=== PATIENT | male | born 1940 | race African-American/Black ===

== ENCOUNTER → 2023-07-06 13:58 | Outpatient (REF) | payer MEDICARE, SELFPAY | LOC: WOUND 13:58 | PROVIDERS: ATTENDING PHYSICIAN Surgery; FAMILY PHYSICIAN Specialist | DX: L89.623 Pressure ulcer of left heel, stage 3 (principal); G62.9 Polyneuropathy, unspecified; I73.9 Peripheral vascular disease, unspecified; I87.2 Venous insufficiency (chronic) (peripheral); N18.9 Chronic kidney disease, unspecified; R33.8 Other retention of urine; N31.9 Neuromuscular dysfunction of bladder, unspecified; R33.9 Retention of urine, unspecified; S14.109S Unspecified injury at unspecified level of cervical spinal cord, sequela; X58.XXXS Exposure to other specified factors, sequela | CPT/HCPCS: 11042; 99204 ==

== ENCOUNTER → 2023-07-06 14:05 | Outpatient (REF) | payer MEDICARE, SELFPAY | LOC: RAD 14:05 | PROVIDERS: ATTENDING PHYSICIAN Surgery; FAMILY PHYSICIAN Family Medicine | DX: L89.623 Pressure ulcer of left heel, stage 3 (principal) | CPT/HCPCS: 73630 ==

== ENCOUNTER → 2023-07-13 09:58 | Outpatient (REF) | payer MEDICARE, SELFPAY | LOC: WOUND 09:58 | PROVIDERS: ATTENDING PHYSICIAN Surgery | DX: L89.623 Pressure ulcer of left heel, stage 3 (principal); G62.9 Polyneuropathy, unspecified; I73.9 Peripheral vascular disease, unspecified; I87.2 Venous insufficiency (chronic) (peripheral); N18.9 Chronic kidney disease, unspecified; R33.8 Other retention of urine; N31.9 Neuromuscular dysfunction of bladder, unspecified; R33.9 Retention of urine, unspecified; S14.109S Unspecified injury at unspecified level of cervical spinal cord, sequela; X58.XXXS Exposure to other specified factors, sequela | CPT/HCPCS: 11043 ==

== ENCOUNTER → 2023-07-20 10:06 | Outpatient (REF) | payer MEDICARE, SELFPAY | LOC: WOUND 10:06 | PROVIDERS: ATTENDING PHYSICIAN Surgery; FAMILY PHYSICIAN Internal Medicine | DX: L89.623 Pressure ulcer of left heel, stage 3 (principal); G62.9 Polyneuropathy, unspecified; I73.9 Peripheral vascular disease, unspecified; I87.2 Venous insufficiency (chronic) (peripheral); N18.9 Chronic kidney disease, unspecified; R33.8 Other retention of urine; N31.9 Neuromuscular dysfunction of bladder, unspecified; R33.9 Retention of urine, unspecified; S14.109S Unspecified injury at unspecified level of cervical spinal cord, sequela; X58.XXXS Exposure to other specified factors, sequela | CPT/HCPCS: 11043 ==

== ENCOUNTER → 2023-07-27 09:18 | Outpatient (REF) | payer MEDICARE, SELFPAY | LOC: WOUND 09:18 | PROVIDERS: ATTENDING PHYSICIAN Surgery; FAMILY PHYSICIAN Internal Medicine | DX: L89.623 Pressure ulcer of left heel, stage 3 (principal); G62.9 Polyneuropathy, unspecified; I73.9 Peripheral vascular disease, unspecified; I87.2 Venous insufficiency (chronic) (peripheral); N18.9 Chronic kidney disease, unspecified; R33.8 Other retention of urine; N31.9 Neuromuscular dysfunction of bladder, unspecified; R33.9 Retention of urine, unspecified; S14.109S Unspecified injury at unspecified level of cervical spinal cord, sequela; X58.XXXS Exposure to other specified factors, sequela | CPT/HCPCS: 11043 ==

== ENCOUNTER → 2023-08-03 09:35 | Outpatient (REF) | payer MEDICARE, SELFPAY | LOC: WOUND 09:35 | PROVIDERS: ATTENDING PHYSICIAN Surgery; FAMILY PHYSICIAN Internal Medicine | DX: L89.623 Pressure ulcer of left heel, stage 3 (principal); L97.412 Non-pressure chronic ulcer of right heel and midfoot with fat layer exposed; G62.9 Polyneuropathy, unspecified; I73.9 Peripheral vascular disease, unspecified; I87.2 Venous insufficiency (chronic) (peripheral); N18.9 Chronic kidney disease, unspecified; R33.8 Other retention of urine; N31.9 Neuromuscular dysfunction of bladder, unspecified; R33.9 Retention of urine, unspecified; S14.109S Unspecified injury at unspecified level of cervical spinal cord, sequela; X58.XXXS Exposure to other specified factors, sequela | CPT/HCPCS: 11042; 97597 ==

== ENCOUNTER → 2023-08-03 10:18 | Outpatient (REF) | payer MEDICARE, SELFPAY | LOC: RAD 10:18 | PROVIDERS: ATTENDING PHYSICIAN Surgery | DX: L97.412 Non-pressure chronic ulcer of right heel and midfoot with fat layer exposed (principal) | CPT/HCPCS: 73630 ==

== ENCOUNTER → 2023-08-10 09:48 | Outpatient (REF) | payer MEDICARE, SELFPAY | LOC: WOUND 09:48 | PROVIDERS: ATTENDING PHYSICIAN Surgery; FAMILY PHYSICIAN Internal Medicine | DX: L89.623 Pressure ulcer of left heel, stage 3 (principal); L97.412 Non-pressure chronic ulcer of right heel and midfoot with fat layer exposed; G62.9 Polyneuropathy, unspecified; I73.9 Peripheral vascular disease, unspecified; I87.2 Venous insufficiency (chronic) (peripheral); N18.9 Chronic kidney disease, unspecified; R33.8 Other retention of urine; N31.9 Neuromuscular dysfunction of bladder, unspecified | CPT/HCPCS: 99212 ==

== ENCOUNTER → 2023-08-17 09:22 | Outpatient (REF) | payer MEDICARE, SELFPAY | LOC: WOUND 09:22 | PROVIDERS: ATTENDING PHYSICIAN Surgery; FAMILY PHYSICIAN Internal Medicine | DX: L89.623 Pressure ulcer of left heel, stage 3 (principal); L89.613 Pressure ulcer of right heel, stage 3; G62.9 Polyneuropathy, unspecified; I73.9 Peripheral vascular disease, unspecified; I87.2 Venous insufficiency (chronic) (peripheral); N18.9 Chronic kidney disease, unspecified; R33.8 Other retention of urine; N31.9 Neuromuscular dysfunction of bladder, unspecified; R33.9 Retention of urine, unspecified; S14.109S Unspecified injury at unspecified level of cervical spinal cord, sequela; X58.XXXS Exposure to other specified factors, sequela | CPT/HCPCS: 11042 ==

== ENCOUNTER 2023-08-24 01:30 | Emergency (ER) | payer MEDICARE, SELFPAY ==
[2023-08-24 02:01] VITALS: BP 104/58
--- NOTE | 2023-08-24 02:13 | ED.GENMED ---
History of Present Illness
General
Chief Complaint: Male Genito-Urinary Symptoms
Source: patient and family
Exam Limitations: none
Time Seen by Provider: 08/24/23 02:13
Travel History
Have you had any contact with someone who has COVID-19?: No
Do you have any symptoms of coronavirus? Fever > 100 degrees, chills, cough, shortness of breath, sore throat, loss of taste or smell, muscle aches, or headache?: No
History of Present Illness
History of Present Illness:
See MDM
Past History
Past History
ED Past Medical History: Other (Urinary incontinence, spinal cord injury)
Social History
Tobacco: Non-smoker
Living: with family
Phy Exam
Physical Exam
Physical Exam:
See MDM
Course
Vital Signs
Initial and Last Documented VS:
Initial Vital Signs
Pulse Ox
99
08/24/23 01:32
Last Documented Vital Signs
Temp Pulse Resp Pulse Ox
98.9 F 88 16 98
08/24/23 01:34 08/24/23 01:34 08/24/23 01:34 08/24/23 01:34
MDM/Problems Addressed
Differential Diagnosis Includes:
HPI and MDM Narrative:
83-year-old male presenting with hematuria. Patient states that the visiting nurse tried to replace his indwelling Lin and blew the balloon up in his prostate. It began to bleed and they could not due to the copious amounts of blood.
When he arrived, a 14 Portuguese Lin was placed. Ricardo blood was immediately draining. However, it was quickly followed by straw-colored urine. Patient states he feels comfortable going home
Physical exam
General: Well appearing and non-toxic
HEENT: protecting airway
Neck: appears supple
CV: No evidence of cyanosis
Resp: No accessory muscle use
Abd: Non-distended. Soft and nontender
Extremities: Contractures to upper extremities
Neuro: alert
Psych: Normal affect
Skin: Intact
Problems Addressed including Acute and Chronic Conditions affecting care:
1. Lin catheter complication
Acuity: acute
Prognosis: stable
Details: Lin catheter was replaced and the hematuria is now replaced with straw-colored urine
Differential Diagnosis (but not limited to): Prostate injury, false passage, hematuria
Testing considered: Urinalysis
Drug therapy (if applicable): OTC meds, please see d/c instruction regarding Rx drugs
Amount and/or Complexity of Data Reviewed
Clinical info obtained from: Patient
External data reviewed: N/A
Labs I independently reviewed (but not limited to): N/A
Radiology: N/A
Pulse Ox: not hypoxic
EKG independently reviewed: N/A
Program Management Specialist: N/A
Critical Care: N/A
Risk of Complication:
Social Determinants of health: Good social support
Discussed with other providers: N/A
Escalation of Care includes Admit/Obs: After being observed in the Emergency Department, pt stable for discharge.
Occasional wrong word or 'sound a like' substitutions may have occurred due to the inherent limitations of voice recognition software. Read the chart carefully and recognize, using context, where substitutions have occurred.
*Critical Care Note
Total Time (30-74mins, 75-104mins- exclusive of procedures): Not Applicable
ED Attending Note
-
Portions of this chart may have been created with voice recognition software.� Occasional wrong word or��sound alike� substitutions may have occurred due to the inherent limitations of voice recognition software.
Discharge Plan
Departure
Patient Disposition: Home (Routine Discharge)
Date of Disposition: 08/24/23
Time of Disposition: 02:14
Patient with high blood pressure during this ER visit?: No
Discharge Problem:
Urinary catheter complication
Instructions: How to Care for Your Lin Catheter, Male
Prescriptions:
No Action
levothyroxine 25 mcg Tablet
25 mcg PO DAILY
amoxicillin-pot clavulanate 250-125 mg Tablet
1 tab PO Q12 Qty: 9 0RF
Rx Instructions:
last day 05/25/23
hydralazine 25 mg Tablet
50 mg PO TID Qty: 0 0RF
furosemide 40 mg Tablet
40 mg PO DAILY Qty: 0 0RF
polyethylene glycol 3350 [HealthyLax] 17 gram Powder In Packet
17 g PO DAILY Qty: 0 0RF
metoprolol tartrate 25 mg Tablet
25 mg PO BID Qty: 0 0RF
baclofen 5 mg Tablet
2.5 mg PO BID Qty: 0 0RF
sennosides-docusate sodium [Stool Softener-Stimulant Laxat] 8.6-50 mg Tablet
1 tab PO BID Qty: 0 0RF
Activity Restrictions/Additional Instructions:
Please return for any worsening symptoms.
You may return at any time if you have further concerns.
Please follow up with your doctor at the first available appointment, preferably this week.
Thank you for choosing [facility].
Interventions
Interventions:
*Risk Screen - Suicide Last Done: 08/24/23 01:34
*General Assessment Last Done: 08/24/23 01:34
*Neglect/Abuse Screening Last Done: 08/24/23 01:34
ED- Fall Risk Assessment Last Done: 08/24/23 01:34
*ED COVID-19 Vaccine History Last Done: 08/24/23 01:34
ED-Male Genitourinary Assessment Last Done: 08/24/23 01:34
Discharge Date and Time
Print Language: UZBEK
[2023-08-24 02:21] VITALS: BP 124/78
[2023-08-24 03:00] VITALS: BP 125/72
[2023-08-24 04:00] VITALS: BP 149/80
== END 2023-08-24 05:01 | disposition home or self-care (01) ==
LOC: EMR 01:30
PROVIDERS: EMERGENCY PHYSICIAN Student in an Organized Health Care Education/Training Program; FAMILY PHYSICIAN Physician Assistant Medical
DX: T83.098A Other mechanical complication of other urinary catheter, initial encounter (principal); R31.9 Hematuria, unspecified; Y84.6 Urinary catheterization as the cause of abnormal reaction of the patient, or of later complication, without mention of misadventure at the time of the procedure; R32 Unspecified urinary incontinence
CPT/HCPCS: 99284; 51702

== ENCOUNTER 2023-08-29 12:15 | Emergency (ER) | payer MEDICARE, SELFPAY ==
[2023-08-29 12:15] VITALS: BMI 19.8
[2023-08-29 12:19] VITALS: BP 108/65
[2023-08-29 13:35] LABS: Urine Albumin Trace (Neg - Trace); Urine Bilirubin Negative (Negative); Urine Character Slightly Cloudy (Clear); Urine Color Yellow; Urine Glucose Negative (Negative); Urine Ketone Negative (Negative); Urine Leukocyte 2+ (Negative); Urine Nitrite Negative (Negative); Urine Occult Blood 2+ (Negative); Urine Specific Gravity 1.005 (<1.030); Urine Urobilinogen Negative (Neg - 1+)
[2023-08-29 14:20] VITALS: BP 110/71
--- NOTE | 2023-08-29 14:22 | ED.GENMED ---
Addendum entered and electronically signed by Deborah Fermin PA-C 09/01/23 16:51:
Urine culture positive for Proteus, mostly pansensitive except Macrobid. Patient was called but did not answer. I left a message with his daughters phone who is the mother point of contact who did not call me back. I will presume that the patient
probably had colonization from his catheter based on reading the note where the patient had no systemic symptoms
Original Note:
History of Present Illness
General
Chief Complaint: Catheter/Tube Problem
Source: patient
Exam Limitations: none
Time Seen by Provider: 08/29/23 13:01
Nursing documentation reviewed up to this point in time: agreed with
Travel History
Have you had any contact with someone who has COVID-19?: No
Do you have any symptoms of coronavirus? Fever > 100 degrees, chills, cough, shortness of breath, sore throat, loss of taste or smell, muscle aches, or headache?: No
History of Present Illness
History of Present Illness:
83-year-old male past medical history of urinary retention hypothyroidism presenting to the emergency department after his Lin catheter was dislodged and Lin taken out by home visiting nurse yesterday able to urinate small amount but having
retention denies additional symptoms otherwise no fevers no additional concerns.
Past History
Past History
ED Past Medical History: Other (Urinary incontinence, spinal cord injury)
Social History
Tobacco: Non-smoker
Living: with family
Review of Systems
Review of Systems
Allergies reviewed?: Yes
All Other Systems: ROS reviewed and negative except as documented in HPI and ROS
Phy Exam
Physical Exam
Physical Exam:
GENERAL: Alert , in no apparent distress
EYE: pupils equal and reactive
NECK: Supple, no significant adenopathy.
ENT: o/p clr, mmm.
CARDIAC: Regular rate and rhythm .
LUNGS: Clear breath sounds bilaterally, no acute respiratory distress, no wheezes/rales/rhonchi
ABDOMEN: Soft, without focal tenderness, no r/g, no cvat
NEUROLOGICAL: Alert and oriented, no focal neuro deficits
SKIN: Warm and dry, skin intact.
MUSCULOSKELETAL: No edema, well perfused.
PSYCH: Normal and appropriate interaction.
Course
Orders/Labs/Results
Orders:
Orders
08/29/23 13:16
Lin Placement- Treatment ONCE
Reason for insertion: Acute Retention
08/29/23 13:23
Urinalysis Reflex To Culture Urgent
Date Specimen was Collected: 08/29/23
Time Specimen was Collected: 13:22
Urine Microscopic Reflex Cult Urgent
Urine Culture Urgent
SASCHA Source: U
Specimen Description:
Date Specimen was Collected: 08/29/23
Time Specimen was Collected: 13:22
Abnormal Lab Results
08/29/23
13:23
Ur Occult Blood Reflex 2+ A
(Negative)
Leukocyte Esterase Rfl 2+ A
(Negative)
Vital Signs
Initial and Last Documented VS:
Initial Vital Signs
Temp Pulse Resp BP Pulse Ox
97.4 F 75 20 108/65 97
08/29/23 12:19 08/29/23 12:19 08/29/23 12:19 08/29/23 12:19 08/29/23 12:19
Last Documented Vital Signs
Temp Pulse Resp BP Pulse Ox
97.4 F 72 16 110/71 99
08/29/23 12:19 08/29/23 14:20 08/29/23 14:20 08/29/23 14:20 08/29/23 14:20
MDM/Problems Addressed
MDM/Problems Addressed:
83-year-old male presenting to the emergency department today with concerns of Lin catheter issue denies additional symptoms otherwise does have some discomfort to the suprapubic region due to not urinating throughout the day today. Lin
catheter placed by nursing patient tolerated well stable for discharge urinalysis does not appear to be consistent with UTI. Return precautions given.
*Critical Care Note
Total Time (30-74mins, 75-104mins- exclusive of procedures): Not Applicable
ED Attending Note
-
Portions of this chart may have been created with voice recognition software.� Occasional wrong word or��sound alike� substitutions may have occurred due to the inherent limitations of voice recognition software.
Discharge Plan
Departure
Patient Disposition: Home (Routine Discharge)
Date of Disposition: 08/29/23
Time of Disposition: 14:24
Patient with high blood pressure during this ER visit?: No
Condition: Good
Covid-19: Not Applicable
Discharge Problem:
Dislodged Lin catheter
Instructions: How to Care for Your Lin Catheter, Male
Prescriptions:
No Action
levothyroxine 25 mcg Tablet
25 mcg PO DAILY
amoxicillin-pot clavulanate 250-125 mg Tablet
1 tab PO Q12 Qty: 9 0RF
Rx Instructions:
last day 05/25/23
hydralazine 25 mg Tablet
50 mg PO TID Qty: 0 0RF
furosemide 40 mg Tablet
40 mg PO DAILY Qty: 0 0RF
polyethylene glycol 3350 [HealthyLax] 17 gram Powder In Packet
17 g PO DAILY Qty: 0 0RF
metoprolol tartrate 25 mg Tablet
25 mg PO BID Qty: 0 0RF
baclofen 5 mg Tablet
2.5 mg PO BID Qty: 0 0RF
sennosides-docusate sodium [Stool Softener-Stimulant Laxat] 8.6-50 mg Tablet
1 tab PO BID Qty: 0 0RF
Referrals:
Ricardo Edwards Jr., MD [Active] - Follow up in 5-7 days
UNKNOWN - PT DOES,NOT KNOW [Family Provider] -
Activity Restrictions/Additional Instructions:
You came to the emergency department today with concerns of Lin catheter issue. You had a new 1 placed. Please have close with urology for further management. Return to the emergency department for any worsening, new or concerning symptoms.
Interventions
Interventions:
*Risk Screen - Suicide Last Done: 08/29/23 12:34
*General Assessment Last Done: 08/29/23 12:34
*Neglect/Abuse Screening Last Done: 08/29/23 12:34
*ED COVID-19 Vaccine History Last Done: 08/29/23 12:29
AM-Ovqwcy-Tlolhxowwt Assessment Last Done: 08/29/23 12:38
ED-Male Genitourinary Assessment Last Done: 08/29/23 12:38
Discharge Date and Time
Print Language: IVORIAN
[2023-08-29 14:54] LABS: Urine Squamous Cell 0-2 /LPF (Few)
[2023-08-29 14:56] LABS: Urine White Cell >100 /HPF (0-5)
== END 2023-08-29 14:40 | disposition home or self-care (01) ==
LOC: EMR 12:15
PROVIDERS: Physician Assistant; EMERGENCY PHYSICIAN Student in an Organized Health Care Education/Training Program
DX: T83.021A Displacement of indwelling urethral catheter, initial encounter (principal)
CPT/HCPCS: 99283; 51702; 81003; 81015; 87077; 87086; 87186

== ENCOUNTER → 2023-08-31 09:08 | Outpatient (REF) | payer MEDICARE, SELFPAY | LOC: WOUND 09:08 | PROVIDERS: ATTENDING PHYSICIAN Surgery; FAMILY PHYSICIAN Internal Medicine | DX: L89.623 Pressure ulcer of left heel, stage 3 (principal); L89.613 Pressure ulcer of right heel, stage 3; G62.9 Polyneuropathy, unspecified; I73.9 Peripheral vascular disease, unspecified; I87.2 Venous insufficiency (chronic) (peripheral); N18.9 Chronic kidney disease, unspecified; R33.8 Other retention of urine; N31.9 Neuromuscular dysfunction of bladder, unspecified; R33.9 Retention of urine, unspecified; S14.109S Unspecified injury at unspecified level of cervical spinal cord, sequela; X58.XXXS Exposure to other specified factors, sequela | CPT/HCPCS: 11042 ==

== ENCOUNTER → 2023-09-14 08:54 | Outpatient (REF) | payer MEDICARE, SELFPAY | LOC: WOUND 08:54 | PROVIDERS: ATTENDING PHYSICIAN Surgery; FAMILY PHYSICIAN Internal Medicine | DX: L89.623 Pressure ulcer of left heel, stage 3 (principal); L89.613 Pressure ulcer of right heel, stage 3; G62.9 Polyneuropathy, unspecified; I73.9 Peripheral vascular disease, unspecified; I87.2 Venous insufficiency (chronic) (peripheral); N18.9 Chronic kidney disease, unspecified; R33.8 Other retention of urine; N31.9 Neuromuscular dysfunction of bladder, unspecified; R33.9 Retention of urine, unspecified; S14.109S Unspecified injury at unspecified level of cervical spinal cord, sequela; X58.XXXS Exposure to other specified factors, sequela | CPT/HCPCS: 17250; 99213 ==

== ENCOUNTER → 2023-09-28 08:51 | Outpatient (REF) | payer MEDICARE, SELFPAY | LOC: WOUND 08:51 | PROVIDERS: ATTENDING PHYSICIAN Surgery; FAMILY PHYSICIAN Internal Medicine | DX: L89.623 Pressure ulcer of left heel, stage 3 (principal); L89.613 Pressure ulcer of right heel, stage 3; G62.9 Polyneuropathy, unspecified; I73.9 Peripheral vascular disease, unspecified; I87.2 Venous insufficiency (chronic) (peripheral); N18.9 Chronic kidney disease, unspecified; R33.8 Other retention of urine; N31.9 Neuromuscular dysfunction of bladder, unspecified; R33.9 Retention of urine, unspecified; S14.109S Unspecified injury at unspecified level of cervical spinal cord, sequela; X58.XXXS Exposure to other specified factors, sequela | CPT/HCPCS: 99212 ==

== ENCOUNTER 2023-12-21 17:17 | Inpatient (IN) | payer MEDICARE, SELFPAY ==
[2023-12-21] VITALS (21 sets, daily range): BP systolic 86–194; BP diastolic 66–100; BMI 19.8
--- NOTE | 2023-12-21 10:46 | EDRN ---
Debbie Cote MD in to see pt at this time.
--- NOTE | 2023-12-21 10:55 | ED.GENMED ---
History of Present Illness
General
Chief Complaint: Abdominal Pain
Source: patient
Time Seen by Provider: 12/21/23 10:43
History of Present Illness
History of Present Illness:
83yoM with a remote history of a C3 spinal cord injury, hypertension, CKD, and chronic Lin catheter presenting via EMS for evaluation of abdominal pain. Patient's Lin catheter was clogged overnight and his visiting nurse came this morning and
exchanged the catheter. The catheter is now working appropriately. Patient was initially feeling well after the nurse left. He remembers sitting up in the bed and feeling dizzy. He then remembers waking up in the wheelchair. He believes he passed
out because he does not remember getting into the wheelchair. He then asked his grandson to take him outside to get some air. Patient became nauseous after drinking water and had 2 episodes of vomiting. He started to experience right sided abdominal
pain on EMS arrival. He denies any chest pain, shortness of breath, fevers.
Past History
Past History
ED Past Medical History: Other (Urinary incontinence, spinal cord injury)
Social History
Tobacco: Non-smoker
Living: with family
Phy Exam
General Physical Exam
General Presentation: well appearing and no apparent distress
General age: appears stated age
General Skin: warm and dry
General Habitus: normal
Cardiovascular Exam
Cardiovascular Exam: regular rate/rhythm and no edema
Pulmonary Exam
Pulmonary Exam: lungs clear, no respiratory distress and no crackles
Gastrointestinal Exam
Gastrointestinal Exam: soft, non distended and tender (+Tenderness in RUQ, RLQ, and suprapubic region. No guarding or rigidity. )
Palpation: right upper quadrant: Moderate tenderness and right lower quadrant: Moderate tenderness
Genitourinary Exam Male
Exam Male: other (Lin catheter in place draining cloudy yellow urine)
Skin Exam
Skin Exam: normal color and warm/dry
Psychiatric Exam
Psychiatric Exam: normal mood/affect
Course
Orders/Labs/Results
Orders:
Orders
12/21/23 10:53
Electrocardiogram (*1) Urgent
Reason for Study: Syncope
EKG- Treatment ONCE
Acetaminophen 1000MG/100Ml [Ofirmev] 1,000 mg in 100 ml IV ONCE
Acetaminophen IV Indication:: ED Narcotic Naive Pt-ONCE
Iohexol [Omnipaque] See Protocol PO NOW STA
12/21/23 10:54
Cardiac Monitoring- Treatment ONCE
12/21/23 10:56
CT Abd/pel (oral only)-DH Only Urgent
Comment:
Reason For Exam: R sided abd pain
Iohexol [Omnipaque] See Protocol PO NOW STA
12/21/23 11:05
0.9% Sodium Chloride 500 ml [Nss] 500 ml IV BOLUS
12/21/23 11:41
Basic Metabolic Panel Urgent
Complete Blood Count/With Diff Urgent
Lactate Level [Lactic Acid] Urgent
Lipase Urgent
Troponin I Urgent
12/21/23 13:24
LFT [Nubyp-Ntmy-Kviiaqt] Urgent
Potassium Urgent
12/21/23 13:41
CR Chest - 2 Views Urgent
Comment:
Reason For Exam: Cough
12/21/23 14:03
0.9% Sodium Chloride 500 ml [Nss] 500 ml IV BOLUS
12/21/23 15:11
Electrocardiogram (*1) Urgent
Reason for Study: Syncope
EKG- Treatment ONCE
12/21/23 15:33
Troponin I Urgent
12/21/23 15:48
CefTRIAXone [Rocephin] 1,000 mg IV NOW STA
12/21/23 16:19
Urinalysis Reflex To Culture Urgent
Date Specimen was Collected: 12/21/23
Time Specimen was Collected: 16:06
Abnormal Lab Results
12/21/23 12/21/23
11:41 13:24
WBC 16.1 H 10^3/uL
(4.8-10.8)
RBC 4.32 L 10^6/uL
(4.70-6.10)
Hgb 12.5 L g/dL
(13.0-18.0)
Hct 37.5 L %
(39.0-52.0)
Abs Immat Gran (auto) 0.1 H 10^3/uL
(0-0.05)
Absolute Neuts (auto) 14.0 H 10^3/uL
(1.4-6.5)
Absolute Lymphs (auto) 0.8 L 10^3/uL
(1.2-3.4)
Absolute Monos (auto) 1.2 H 10^3/uL
(0.1-0.6)
Neutrophils % 86.6 H %
(42.2-75.2)
Lymphocytes % 4.8 L %
(20.5-51.1)
Potassium 5.5 H mmol/L
(3.5-5.1)
BUN 58 H mg/dl
(9-20)
Creatinine 2.7 H mg/dL
(0.7-1.3)
Lactic Acid 2.5 H mmol/L
(0.7-2.0)
Troponin I 0.100 H* ng/ml
Albumin 3.3 L g/dl
(3.5-5.0)
12/21/23 11:41
12/21/23 13:24
Vital Signs
Initial and Last Documented VS:
Initial Vital Signs
Pulse Resp BP Pulse Ox
79 20 131/77 82
12/21/23 10:40 12/21/23 10:40 12/21/23 10:40 12/21/23 10:40
Last Documented Vital Signs
Temp Pulse Resp BP Pulse Ox
98.4 F 76 20 149/86 100
12/21/23 10:46 12/21/23 15:30 12/21/23 15:30 12/21/23 15:00 12/21/23 15:30
MDM/Problems Addressed
Differential Diagnosis Includes:
83yoM here with abdominal pain. Had a clogged Lin catheter which was exchanged by his home nurse this morning. Patient had a questionable syncopal episode this morning and EMS was called. He developed R sided abd pain on EMS arrival. He is
afebrile and hemodynamically stable. He is acutely non-toxic appearing. No signs of peritonitis on abdominal exam. Differential diagnosis includes but is not limited to: arrhythmia, ACS, UTI, appendicitis, biliary pathology, nonspecific abdominal
pain
Initial ED plan: Check abdominal labs, lactate, troponin/EKG, CXR, and CT abdomen. IV fluid bolus.
*EKG
Interpreted by ED Provider?: Yes
EKG Intrepretation Date: 12/21/23
Heart Rate: 67
Rate: normal
Rhythm: sinus
[employer]: left axis deviation
QRS Pattern: right bundle branch block and other (LAFB)
Ischemia: T-wave inversion (V3-V6)
*Critical Care Note
Total Time (30-74mins, 75-104mins- exclusive of procedures): Not Applicable
Update Note
Update Note:
Labs reveal a leukocytosis with a WBC of 16 and lactate of 2.5. Creatinine 2.7, up from baseline of 2.0-2.2. Potassium 5.5. Troponin 0.1. EKG shows NSR with T wave inversions in V3-V6 which were also present on prior EKG. CT abdomen shows evidence
of stercoral colitis as well as bladder wall thickening. UA added as well as IV Rocephin given SIRS criteria. He was admitted for further management.
ED Attending Note
-
Portions of this chart may have been created with voice recognition software.� Occasional wrong word or��sound alike� substitutions may have occurred due to the inherent limitations of voice recognition software.
Discharge Plan
Departure
Patient Disposition: Admit
Date of Disposition: 12/21/23
Time of Disposition: 15:56
Presentation/result/management discussed w/ accepting MD/DO: Hospitalist
Discharge Problem:
Acute kidney injury, Elevated troponin, SIRS (systemic inflammatory response syndrome)
Prescriptions:
No Action
levothyroxine 25 mcg Tablet
25 mcg PO DAILY
metoprolol tartrate 25 mg Tablet
25 mg PO BID Qty: 0 0RF
acetaminophen [Tylenol] 325 mg Tablet
650 mg PO Q6HPRN PRN (Reason: mild pain)
amlodipine [Norvasc] 5 mg Tablet
5 mg PO DAILY
furosemide 40 mg tablet
20 mg PO DAILY
baclofen 5 mg tablet
5 mg PO BID
Referrals:
Guevara Giraldo MD [Family Provider] -
Interventions
Interventions:
*Risk Screen - Suicide Last Done: 12/21/23 10:44
*General Assessment Last Done: 12/21/23 10:44
*Neglect/Abuse Screening Last Done: 12/21/23 10:44
ED- Fall Risk Assessment Last Done: 12/21/23 10:44
*ED COVID-19 Vaccine History Last Done: 12/21/23 10:44
AW-Dqexyu-Ssacqyrwqq Assessment Last Done: 12/21/23 10:54
Discharge Date and Time
Print Language: HEBREW
[2023-12-21] MEDS: NSS 500 IV ×2 (11:48→14:21)
[2023-12-21] MEDS: OFIRMEV 100 IV (11:50)
[2023-12-21] MEDS: OMNIPAQUE 50 ML PO (11:55)
[2023-12-21 11:56] LABS: % Basophils 0.4 % (0-2); % Eosinophils 0.1 % (0-6); % Immature Granulocytes 0.5 % (0-0.5); % Lymphocytes 4.8 % (20.5-51.1); % Monocytes 7.6 % (1.7-9.3); % Neutrophils 86.6 % (42.2-75.2); Absolute Basophils 0.1 10^3/uL (0-0.2); Absolute Immature Granulocytes 0.1 10^3/uL (0-0.05); Absolute Lymphocytes 0.8 10^3/uL (1.2-3.4); Absolute Monocytes 1.2 10^3/uL (0.1-0.6); Hematocrit 37.5 % (39.0-52.0); Hemoglobin 12.5 g/dL (13.0-18.0); Mean Corp Hgb Conc. 33.3 g/dL (33.0-37.0); Mean Corpuscular Hgb 28.9 pg (27.0-31.0); Mean Corpuscular Volume 86.8 fL (80.0-94.0); Mean Platelet Volume 10.2 fL (7.4-10.4); Nucleated Red Blood Cells % 0 % (-); Platelet Count 262 10^3/uL (130-400); Red Blood Cell Count 4.32 10^6/uL (4.70-6.10); Red Cell Dist. Width 14.4 % (11.5-14.5); White Blood Cell Count 16.1 10^3/uL (4.8-10.8)
[2023-12-21 12:06] LABS: Lactic Acid 2.5 mmol/L (0.7-2.0)
--- NOTE | 2023-12-21 12:25 | EDRN ---
Pt states pain is a 6/10 and not getting the shooting pain at this time.
[2023-12-21 12:28] LABS: Blood Urea Nitrogen 58 mg/dl (9-20); Calcium 9.3 mg/dl (8.4-10.2); Carbon Dioxide 24 mmol/L (22-30); Chloride 106 mmol/L (98-107); Estimated Creatinine Clearance 15 ml/min; Glucose 96 mg/dl (70-99); Lipase 121 U/L (23-300); Sodium 137 mmol/L (135-145)
--- NOTE | 2023-12-21 13:26 | EDRN ---
SST blood tube was hemolyzed and Debbie Dyson MD ordered potassium and liver panel. SST blood tube just redrawn and sent at this time. This RN in and out of room frequently to help pt drink PO contrast.
--- NOTE | 2023-12-21 13:40 | EDRN ---
Debbie Dyson MD in to see pt at this time.
[2023-12-21 14:00] LABS: ALT (SGPT) 11 U/L (0-50); AST (SGOT) 26 U/L (17-59); Albumin 3.3 g/dl (3.5-5.0); Alkaline Phosphatase 94 U/L (38-126); Direct Bilirubin 0.3 mg/dl (0.0-0.4); Potassium 5.5 mmol/L (3.5-5.1); Total Bilirubin 0.7 mg/dl (0.2-1.3); Total Protein 6.4 g/dl (6.3-8.2)
--- NOTE | 2023-12-21 16:20 | EDRN ---
Dr. Gee Escalona in room w/ pt at this time.
[2023-12-21 16:25] LABS: Urine Albumin 2+ (Neg - Trace); Urine Bilirubin Negative (Negative); Urine Character Very Cloudy (Clear); Urine Color Yellow; Urine Glucose Negative (Negative); Urine Ketone Negative (Negative); Urine Leukocyte 2+ (Negative); Urine Nitrite Negative (Negative); Urine Occult Blood 4+ (Negative); Urine Urobilinogen Negative (Neg - 1+)
[2023-12-21 16:27] LABS: Troponin I 0.115 ng/ml
[2023-12-21 16:46] LABS: Urine Bacteria Many (Negative); Urine White Cell 80-90 /HPF (0-5)
--- NOTE | 2023-12-21 16:50 | EDRN ---
Leg bag was changed to 2000 mL gravity drainage bag at this time.
--- NOTE | 2023-12-21 17:00 | HPS.HSE ---
Addendum entered and electronically signed by Jason Escalona MD 12/22/23 11:59:
Acute cystitis secondary to malfunctioning/blocked hernandez catheter with a know hx of pansensitive proteau mirabilis.
-Hernandez catheter -chronic for hx of neurogenic bladder - exchanged
-IVAtb with Ctx, follow up Ucx, likely transition to PO vantin BID x7days
-Outpaitent Uro follow up
JONELLE secondary to postobstructive hernandez malfunction. Baseline around 2-2.2.
-2.7 expect to improve as postobstructive ocmpenent has been exchanged.
-Follow up bmp tomorrow AM
-Avoid Nephrotoxins and hypotension
Demand ischemia in the setting of acute infection and JONELLE on CKD with a nonischemic ekg and similar to prior
-Trend to peak
-Monitor on tele
-No indication for Cards consult at this time unless if trop increasing significantly or EKG changs.
Chronic HFpEF, NYHA class II, EF 55% (05/18/23), compensated,
If AM BMP SCr is up then hold lasix otherwise can continue
CKD stage IV
-monitor UOP, Avoid nephrotoxins and hypotension
Original Note:
Family Physician
-
Family Physician: Guevara Giraldo
Chief Complaint
-
Acute Cystitis
History of Present Illness
83-year-old male with remote history of C3 spinal cord injury, hypertension, CKD, and chronic Hernandez catheter presented to the ER due to abdominal pain. Patient states that his Hernandez catheter became clogged overnight and had to be reirrigated by his
visiting nurse. The catheter was fixed and the patient was feeling better however he started feeling dizzy as he sat up in his bed. Patient does not remember what happened afterwards however he woke up in his wheelchair. He does not remember how
he got to the wheelchair but he proceeded to ask his grandson to get him some air outside. This seemed to relieve some of his symptoms however patient proceeded to drink some large amounts of water which precipitated his nausea and vomiting.
Patient had 2 episodes of vomiting mainly liquids and no solids as he had not eaten anything recently. EMS were called and patient started to experience abdominal pain on his right side. Patient has had symptoms like this in the past when he had
his Hernandez clogged up before. He mentions that during those events he had edema in his extremities but he does not have any during this event. Patient has had normal regular bowel movements including 1 this morning and did not notice any blood in
his stool. Patient currently lives with family including his and grand son.
Patient does not complain of any chest pain, shortness of breath, fever, or edema. Patient does complain of some cough, and chills at times.
Medical History
Past Medical History
Past Medical History: Reports HTN and Hypothyroidism
Additional Past Medical History:
C3 spinal cord injury, CKD, chronic urinary incontinence
Past Surgical History: Reports Other (Stent in right leg)
Social History
Tobacco: Non-smoker
Alcohol: None
Living: With Family
Family History
Family History: Not pertinent
Allergies / Home Medications
Allergies reflects when Allergies were last updated in [facility].
Home Medications with original date entered in [facility]
Allergy/Medication List:
Allergies
Allergy/AdvReac Type Severity Reaction Status Date / Time
No Known Allergies Allergy Verified 08/29/23 12:19
Home Medications
levothyroxine 25 mcg tablet 25 mcg PO DAILY 05/15/23
metoprolol tartrate 25 mg tablet 25 mg PO BID #0 tabs 05/21/23
acetaminophen 325 mg tablet (Tylenol) 650 mg PO Q6HPRN PRN mild pain 12/21/23
amlodipine 5 mg tablet (Norvasc) 5 mg PO DAILY 12/21/23
baclofen 5 mg tablet 5 mg PO BID 12/21/23
furosemide 40 mg tablet 20 mg PO DAILY 12/21/23
Review of Systems
-
History Source: Patient
A 12 point ROS was completed and negative except as noted: Yes
Constitutional: Reports Chills; Denies Fever
Respiratory: Denies Cough or Trouble Breathing
Cardiac: Denies Chest Pain, Diaphoresis or Palpitations
Abdomen/GI: Reports Abdominal Pain, Nausea and Vomiting
: Reports See HPI and Hernandez
Musculoskeletal: Denies Edema
Endocrine: Reports No Symptoms
Psych: Reports No Symptoms
Physical Exam
Vital Signs
Vital Signs
Temp Pulse Resp BP Pulse Ox
98.4 F 75 17 133/86 91
12/21/23 10:46 12/21/23 16:45 12/21/23 16:45 12/21/23 16:18 12/21/23 16:45
Physical Exam
General: No Apparent Distress, Comfortable and Conversant
Respiratory: Clear and Non Labored Respirations
Cardiac: S1/S2 and Regular Rhythm
GI: Soft and Tender (Right lower quadrant moderate tenderness)
Genito-urinary: Hernandez (Cloudy yellow urine)
Musculoskeletal: No Clubbing, No Cyanosis and No Edema
Skin: Warm and Dry
Neuro: Awake, Alert, Oriented and AO x 3
Psych: Calm
Laboratory Results
-
12/21/23 11:41
12/21/23 13:24
Laboratory Results
Lactic Acid 2.5 mmol/L (0.7-2.0) H 12/21/23 11:41
Total Bilirubin 0.7 mg/dl (0.2-1.3) 12/21/23 13:24
AST 26 U/L (17-59) 12/21/23 13:24
ALT 11 U/L (0-50) 12/21/23 13:24
Alkaline Phosphatase 94 U/L (38-126) 12/21/23 13:24
Troponin I 0.115 ng/ml H* 12/21/23 15:33
Lipase 121 U/L (23-300) 12/21/23 11:41
Data Reviewed
-
CT Scan: Report Reviewed by me, Discussed with Physician and Discussed with Patient
Medical Tests (Nuc Med, Echo, EKG etc): Report Reviewed by me, Discussed with Physician and Discussed with Patient
Lab Data: Labs Reviewed by me, Discussed with Physician and Discussed with Patient
Impression/Plan
-
Assessment: 83-year-old male with a remote history of C3 spinal cord injury, hypertension, CKD, and chronic Hernandez catheter came to the ER with new onset abdominal pain due to Hernandez catheter clogging. Patient is afebrile and currently in no apparent
distress.
PLAN:
Sepsis-
-SIRS criteria met, with elevated Lactate levels, likely secondary to acute cystitis
-Trend Lactate
-Give IVF
-Admit to telemetry
-Start patient on Rocephin
Acute Cystitis due to chronic Hernandez catheter use
-Started on IV Rocephin in the ED
-Continue 1g Rocephin
-Monitor CBC
-Monitor Electrolytes
-Give IVF
JONELLE on CKD secondary to infection
-Give IVF
-Monitor Renal function, weights, I/Os
High Troponins
-Trend Troponins, possibly secondary to increased demand due to infection
Hyperkalemia-
-Likely to bladder outlet obstruction
-May resolve with IVF and JONELLE resolution
-Monitor kidney function
-if >5.5, correction required
Hyperphosphatemia
-Likely to bladder outlet obstruction
-May resolve with IVF and JONELLE resolution
-Monitor kidney function after hernandez correction
-If persists, check PTH and Ionized calcium
Hypermagnesemia
-History of Hypermagnesemia, check levels in AM
-Monitor Kidney function after hernandez correction
DVT Prophylaxis: Lovenox
Code: Full Code
[2023-12-21] MEDS: ROCEPHIN 1000 MG IV (17:21)
--- NOTE | 2023-12-21 18:33 | EDRN ---
Pt just finished eating at this time.
--- NOTE | 2023-12-21 19:00 | PTCARENOTE ---
Pt arrived to unit from ED. Pt is AAOx3. BP on admission 163/91, HR 107, afebrile, 97% on room air. Pt oriented to room, call rodrigues within reach. Pt reports occasional chronic full body spasms but denies the need for pain medication at this time.
[2023-12-21 20:29] LABS: Troponin I 0.095 ng/ml
[2023-12-21] MEDS: NSS 1000 IV (20:42)
[2023-12-21] MEDS: HEPARIN 5000 UNITS SC (20:43)
[2023-12-21] MEDS: LOPRESSOR 25 MG PO (20:43)
[2023-12-21] MEDS: TYLENOL 650 MG PO (22:12)
[2023-12-22 01:52] LABS: Troponin I 0.087 ng/ml
--- NOTE | 2023-12-22 03:30 | PTCARENOTE ---
Pt's HR increased from 70s to 150s. Pt reports that 'I feel great' and that he is asymptomatic. HR decreased back to 70s-80s after a few minutes. House FARM FACILITY MANAGER Preet notified, order placed for mag level to be drawn in AM, no other orders at this time.
[2023-12-22 04:00] VITALS: BP 162/92
--- NOTE | 2023-12-22 04:25 | PTCARENOTE ---
Pt arrived to unit with a chronic Hernandez without an order. House BUILDING PRESSURE WASHER Preet notified, order placed for chronic hernandez on admit
[2023-12-22] MEDS: SYNTHROID 25 MCG PO (05:59)
--- NOTE | 2023-12-22 07:23 | W.PN.HOSP.TC ---
Addendum entered and electronically signed by Jason Escalona MD 12/22/23 12:06:
Sepsis
-Resolve
-Follow up Ucx
-Continue Atb, transition to PO
Acute cystitis secondary to malfunctioning/blocked hernandez catheter with a know hx of pansensitive proteau mirabilis.
-Hernandez catheter -chronic for hx of neurogenic bladder - exchanged
-IVAtb with Ctx, follow up Ucx, likely transition to PO vantin BID x7days
-Outpaitent Uro follow up
JONELLE vs Progressive CKD secondary to postobstructive hernandez malfunction. Baseline around 2-2.2.
-Improved to 2.4 today
-Follow up bmp tomorrow AM
-Avoid Nephrotoxins and hypotension
Demand ischemia in the setting of acute infection and JONELLE on CKD with a nonischemic ekg and similar to prior
-Trend to peak
-Monitor on tele
-No indication for Cards consult at this time unless if trop increasing significantly or EKG changs.
- - Cards evaled him, rec 2d echo even though he has a recent one and not in decompensated HF with downtrending trops.
Chronic HFpEF, NYHA class II, EF 55% (05/18/23), compensated,
If AM BMP SCr is up then hold lasix otherwise can continue
CKD stage IV
-monitor UOP, Avoid nephrotoxins and hypotension
Addendum entered and electronically signed by Jason Escalona MD 12/22/23 12:01:
Sepsis, source . Provide Atb follow up on culture data
Acute cystitis secondary to malfunctioning/blocked hernandez catheter with a know hx of pansensitive proteau mirabilis.
-Hernandez catheter -chronic for hx of neurogenic bladder - exchanged
-IVAtb with Ctx, follow up Ucx, likely transition to PO vantin BID x7days
-Outpaitent Uro follow up
JONELLE secondary to postobstructive hernandez malfunction. Baseline around 2-2.2.
-2.7 expect to improve as postobstructive ocmpenent has been exchanged.
-Follow up bmp tomorrow AM
-Avoid Nephrotoxins and hypotension
Demand ischemia in the setting of acute infection and JONELLE on CKD with a nonischemic ekg and similar to prior
-Trend to peak
-Monitor on tele
-No indication for Cards consult at this time unless if trop increasing significantly or EKG changs.
Chronic HFpEF, NYHA class II, EF 55% (05/18/23), compensated,
If AM BMP SCr is up then hold lasix otherwise can continue
CKD stage IV
-monitor UOP, Avoid nephrotoxins and hypotension
Original Note:
Today's Communication/Plan
-
Patient to be discharged today on oral antibiotics once he has seen the senior financial analyst.
Assessment / Plan
Assessment / Plan
Assessment: 83-year-old male with a remote history of C3 spinal cord injury, hypertension, CKD, and chronic Hernandez catheter came to the ER with new onset abdominal pain due to Hernandez catheter clogging. Patient is afebrile and currently in no apparent
distress.
Sepsis-
-SIRS criteria met, with elevated Lactate levels, likely secondary to acute cystitis
-Trend Lactate
-Give IVF
-CXR- No active pulmonary process.
-Admit to telemetry
-Patient on Rocephin
-Patient to be switched to oral antibiotics and discharged
Acute tachycardic event
-Patient had asymptomatic tachycardic event lasting for few minutes
-Resolved in few minutes
-Continue monitoring telemetry and electrolytes
-Cardio will be seeing him later today
Acute Cystitis due to chronic Hernandez catheter use
-Started on IV Rocephin in the ED
-Continue 1g Rocephin
-Monitor CBC
-Monitor Electrolytes
-Give IVF
-CT Scan- Mild left hydroureteronephrosis without distal obstructing mass or calculus. The left kidney is atrophic. No right hydronephrosis.
There is circumferential wall thickening of the bladder with perivesical stranding which can be seen in the setting of cystitis
JONELLE on CKD secondary to infection
-Give IVF
-Monitor Renal function, weights, I/Os
-Continue Chronic Hernandez
High Troponins
-Trend Troponins, possibly secondary to increased demand due to infection
-Trending down, non-ischemic elevation most likely
-Stop trending
Hyperkalemia-
-Likely to bladder outlet obstruction
-May resolve with IVF and JONELLE resolution
-Monitor kidney function
-if >5.5, correction required
-labs pending
Hyperphosphatemia
-Likely to bladder outlet obstruction
-May resolve with IVF and JONELLE resolution
-Monitor kidney function after hernandez correction
-If persists, check PTH and Ionized calcium
-labs pending
Hypermagnesemia
-History of Hypermagnesemia, check levels in AM
-Monitor Kidney function after hernandez correction
-labs pending
DVT Prophylaxis: Lovenox
Code: Full Code
Anticipated Discharge: Today
Subjective/Interval History
-
Date of Service: December 22, 2023
Patient has been feeling well, has no complaints at the moment. Patient had a tachycardic event last night that lasted for a few minutes.
Objective Data
-
Labs:
Laboratory Results
12/22/23
06:00
WBC Pending
Hgb Pending
Hct Pending
Plt Count Pending
Sodium Pending
Potassium Pending
Chloride Pending
Carbon Dioxide Pending
BUN Pending
Creatinine Pending
Glucose Pending
Calcium Pending
Total Bilirubin Pending
AST Pending
ALT Pending
Alkaline Phosphatase Pending
Vital Signs:
Vital Signs
Temp Pulse Resp BP Pulse Ox
98.1 F 87 16 162/92 100
12/22/23 04:00 12/22/23 04:00 12/22/23 04:00 12/22/23 04:00 12/22/23 04:00
I&O
12/21/23 12/22/23 12/23/23
06:59 06:59 06:59
Intake Total 1040 / 1040
Output Total 675 / 675 850 / 850
Balance -675 / -675 190 / 190
Review of Systems
-
History Source: Patient
Constitutional: Denies Fever, Sleep Disturbance, Night Sweats or Chills
Respiratory: Denies Cough or Trouble Breathing
Cardiac: Denies Chest Pain, Diaphoresis, Palpitations or Syncope
Abdomen/GI: Reports Abdominal Pain (Mild, improved from yesterday); Denies Nausea or Vomiting
Genitourinary: Denies Dysuria or Frequency
Musculoskeletal: Reports Myalgias
Skin: Reports No Symptoms
Neuro: Reports No Symptoms
Physical Exam
-
General: No Apparent Distress and Comfortable
Respiratory: Clear to Auscultation and Non Labored Respirations
Cardiac: Regular Rhythm and S1/S2
GI: Soft and Nontender
Genito-urinary: Hernandez
Musculoskeletal: No Clubbing, No Cyanosis and No Edema
Skin: Warm and Dry
Neuro: Awake, Alert, Oriented and AO x 3
Psych: Calm
Data Reviewed
-
CT Scan: Report Reviewed by me, Discussed with Physician and Discussed with Patient
Labs: Labs Reviewed by me, Discussed with Physician and Discussed with Patient
[2023-12-22 07:52] VITALS: BP 165/96
--- NOTE | 2023-12-22 08:17 | CON.CAR ---
Addendum entered and electronically signed by Vinny Schneider MD 12/22/23 11:01:
I saw and evaluated the patient. I reviewed the resident�s note and agree with findings and plan as documented in the resident�s note.
GEN:
No distress, awake, Ox3
HEENT: supple, anicteric, mmm
LUNGS: CTA, no wheezes/rales
CV: Reg, S1/S2, 1/6 syst LSB, no gallop
ABD: soft, BS+, + catheter
EXT: No edema
NEURO: Gross non-focal
SKIN: No rash
Plan:
83-year-old male with past medical history of chronic indwelling Lin catheter, spinal cord injury, CKD 3-4, chronic heart failure with preserved ejection fraction presents to [facility] with nausea, vomiting, and dizziness. He was also
having some abdominal pains. We are asked to see an abnormal troponin of 0.1. He denies any chest pains, shortness of breath, orthopnea, PND, or edema. Urinalysis suggests UTI/urosepsis. He has previous episodes of E. coli urosepsis.
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 EKG with stable right bundle branch block and anterolateral T wave inversions.
Continue with antibiotics.
Check echocardiogram to reevaluate LVEF. Previous LVEF was preserved.
Creatinine at 2.4. This is slightly above his baseline. Will hold Lasix for 24 hours and then restart. No clear signs of volume overload.
Continue metoprolol and amlodipine
Original Note:
Consultation
Consultation Request
Date/Time Consultation Requested: 12/22/23
Date/Time Consultation Performed: 12/22/23
Performing Provider: Dr. Schneider
Medical History
-
Chief Complaint: Abdominal pain
History of Present Illness:
This is an 83-year-old male patient with PMH of C3 spinal cord injury, hypertension, CKD and chronic Lin catheter, HFpEF that presented to the ER with abdominal pain. Overnight the patient stated that his Lin catheter had become clogged and was
irrigated again by his visiting nurse which afterward he felt better. After some time he started to feel dizzy when he sat up in bed experienced some nausea and vomiting when he started to drink large amounts of water. Around this time EMS was
called and patient had significant abdominal pain on his right side. He admits to having similar symptoms prior when his Lin was clogged before.
He denies any concerns of chest pain, shortness of breath, palpitations, or fever.
Trops peaked then down trended: 0.113--> 0.095--> 0.087.
Past Medical History
Past Medical History: HTN, Hypothyroidism and Other (C3 spinal cord injury, CKD, chronic urinary incontinence, HFpEF, chronic Lin)
Social History
Tobacco: Non-Smoker
Alcohol: None
Personal:
Living: With Family
Family History
Family History: Reviewed & Not Pertinent
Allergies / Home Medications
Allergy/AdvReac Type Severity Reaction Status Date / Time
No Known Allergies Allergy Verified 08/29/23 12:19
�Medication �Instructions �Recorded �Confirmed �Type
levothyroxine 25 mcg tablet 25 mcg PO DAILY 05/15/23 12/21/23 History
metoprolol tartrate 25 mg tablet 25 mg PO BID #0 tabs 05/21/23 12/21/23 Rx
acetaminophen 325 mg tablet 650 mg PO Q6HPRN PRN mild pain 12/21/23 12/21/23 History
(Tylenol)
amlodipine 5 mg tablet (Norvasc) 5 mg PO DAILY 12/21/23 12/21/23 History
baclofen 5 mg tablet 5 mg PO BID 12/21/23 12/21/23 History
furosemide 40 mg tablet 20 mg PO DAILY 12/21/23 12/21/23 History
hydralazine 25 mg tablet 25 mg BID 12/21/23 12/21/23 History
Review of Systems
-
Respiratory: No Symptoms
Cardiac: No Symptoms
Abdomen/GI: Abdominal Pain
Skin: No Symptoms
Physical Exam
Vital Signs
Temp Pulse Resp BP Pulse Ox
98.1 F 87 16 162/92 100
12/22/23 04:00 12/22/23 04:00 12/22/23 04:00 12/22/23 04:00 12/22/23 04:00
Lab Results
Troponin I 0.087 ng/ml H* 12/22/23 01:19
Physical Exam
General: No Apparent Distress
HEENT: Normocephalic
Respiratory: Clear
Cardiac: S1/S2 and Regular Rhythm; Negative Murmur, Peripheral Edema or JVD
GI: Soft, Non Distended and Tender
Musculoskeletal: No Clubbing, No Cyanosis and No Edema
Skin: Warm and Dry
Neuro: Awake, Alert and Oriented
Psych: Calm
Impression / Plan
-
Impression:This is an 83-year-old male patient with PMH of C3 spinal cord injury, hypertension, CKD and chronic Lin catheter, HFpEF that presented to the ER with abdominal pain. Overnight the patient stated that his Lin catheter had become
clogged and was irrigated again by his visiting nurse which afterward he felt better. After some time he started to feel dizzy when he sat up in bed experienced some nausea and vomiting when he started to drink large amounts of water. Around this
time EMS was called and patient had significant abdominal pain on his right side. He admits to having similar symptoms prior when his Lin was clogged before.
He denies any concerns of chest pain, shortness of breath, palpitations, or fever.
Trops peaked then down trended: 0.113--> 0.095--> 0.087.
Assessment:
HFpEF
RBBB
Hypertension
Hypothyroidism
C3 spinal cord injury
CKD
Chronic urinary incontinence
Chronic indwelling Lin
Echo on 05/2023: LVEF 55%, trace mitral regurgitation. Trace aortic regurgitation. Trace tricuspid regurgitation. Estimated pulmonary artery pressure of 30-35 mmHg assuming a right atrial pressure of 3 mmHg.
Plan:
� CXR on 12/20: no active cardiopulmonary process
� Troponin elevation most likely due to nonischemic myocardial injury
� Hold Lasix p.o. 20 Mg for next 24-48 hours due to increased creatinine
- Does not seem to be volume overloaded on exam
� Monitor daily weights, ins and outs
� Monitor creatinine 2.7 today (baseline 2), monitor BMP
- Continue Norvasc, metoprolol
- Echo ordered and pending
[2023-12-22] MEDS: HEPARIN 5000 UNITS SC (08:31)
[2023-12-22] MEDS: LOPRESSOR 25 MG PO (08:32)
[2023-12-22] MEDS: NORVASC 5 MG PO (08:32)
[2023-12-22] MEDS: LASIX 20 MG PO (08:32)
[2023-12-22] MEDS: NSS 1000 IV (08:33)
--- NOTE | 2023-12-22 08:33 | VNURNOTE ---
Chart reviewed. [facility] PT, BUSINESS SEGMENT MANAGER. Will continue to follow hospital course.
[2023-12-22 09:34] LABS: % Basophils 0.3 % (0-2); % Eosinophils 0.9 % (0-6); % Immature Granulocytes 0.4 % (0-0.5); % Lymphocytes 9.2 % (20.5-51.1); % Monocytes 8.8 % (1.7-9.3); % Neutrophils 80.4 % (42.2-75.2); Absolute Eosinophils 0.1 10^3/uL (0-0.7); Absolute Immature Granulocytes 0.1 10^3/uL (0-0.05); Absolute Lymphocytes 1.1 10^3/uL (1.2-3.4); Absolute Monocytes 1.1 10^3/uL (0.1-0.6); Absolute Neutrophils 9.6 10^3/uL (1.4-6.5); Hematocrit 30.5 % (39.0-52.0); Hemoglobin 10.4 g/dL (13.0-18.0); Mean Corp Hgb Conc. 34.1 g/dL (33.0-37.0); Mean Corpuscular Hgb 29.8 pg (27.0-31.0); Mean Corpuscular Volume 87.4 fL (80.0-94.0); Mean Platelet Volume 10.7 fL (7.4-10.4); Nucleated Red Blood Cells % 0 % (-); Platelet Count 211 10^3/uL (130-400); Red Blood Cell Count 3.49 10^6/uL (4.70-6.10); Red Cell Dist. Width 14.6 % (11.5-14.5)
[2023-12-22 10:52] LABS: ALT (SGPT) 10 U/L (0-50); AST (SGOT) 25 U/L (17-59); Albumin 3.1 g/dl (3.5-5.0); Alkaline Phosphatase 92 U/L (38-126); Blood Urea Nitrogen 51 mg/dl (9-20); Calcium 8.6 mg/dl (8.4-10.2); Carbon Dioxide 23 mmol/L (22-30); Chloride 107 mmol/L (98-107); Estimated Creatinine Clearance 17 ml/min; Glucose 80 mg/dl (70-99); Potassium 4.6 mmol/L (3.5-5.1); Sodium 137 mmol/L (135-145); Total Bilirubin 0.5 mg/dl (0.2-1.3); Total Protein 6.1 g/dl (6.3-8.2)
[2023-12-22 11:45] VITALS: BP 158/92
[2023-12-22 12:52] LABS: Lactic Acid 0.6 mmol/L (0.7-2.0)
--- NOTE | 2023-12-22 14:24 | W.DCSUMMARY ---
Discharge Summary
Discharge Data
Date of Admission: 12/21/23
Date of Discharge: 12/22/23
-
Pending Results: No
Hospital Course
Admission Diagnosis- Acute cystitis secondary to malfunctioning/blocked hernandez catheter with a know hx of pansensitive proteau mirabilis.
Conditions Prior to Admission-
Hypertension
Hypothyroidism
C3 Spinal Cord Injury
CKD
Chronic Urinary Incontinence
Hospital Course
83-year-old male with remote history of C3 spinal cord injury, hypertension, CKD, chronic Hernandez catheter, presented to the ER due to abdominal pain on 12/20. Patient's chronic Hernandez catheter had become clogged overnight and had to be reirrigated by
his visiting nurse. The obstruction was relieved however patient started feeling dizzy as he sat up in his bed. Patient also had some nausea and vomiting and the EMS was called as patient was starting to experience abdominal pain on his right
side. Patient was feeling well in the ED and just had some abdominal pain on his right side. He was afebrile and did not complain of any chest pain, shortness of breath, fever, or edema. Patient was given a dose of IV Rocephin [address]
abdomen pelvis was ordered. CT showed stercoral colitis, mild left hydroureteronephrosis without distal obstructing mass or calculus and some circumferential wall thickening with perivesical stranding of the bladder. Patient was admitted to the
hospital and started on IV Rocephin 1 g. Patient's troponin levels were also elevated when were trended to peak patient was placed on telemetry. Patient's increased creatinine was attributed to JONELLE secondary to postobstructive Hernandez malfunction.
Overnight patient was feeling well except for one instance of sinus rhythm tachycardia that lasted 1 to 2 minutes where patient's heart rate was up to 150. Patient was asymptomatic during the event and felt no symptoms afterwards. The instance
resolved and there were no other instances of tachycardia reported. In the morning, patient felt well and his abdominal pain had resolved. Patient was then seen by Cardiology who recommended stopping Lasix and that the patient get an Echocardiogram.
Patient was transitioned to oral antibiotics Cefpodoxime 200mg BID for 7 days and discharged from the hospital.
Patient's other conditions were managed with his home medications.
Discharge Plan
-
Patient Disposition: Home (Routine Discharge)
Discharge Diagnosis/Procedures: Acute Cystitis
Diet: Regular
Activity: With assistance
Driving Restrictions: As prior to admission
Bathing Restrictions: None
Referrals:
Jonel Peguero PA-C [Family Provider] -
Additional Discharge Medication Instructions: Take Cefpodoxime 200mg twice a day for 7 days. Can continue other medications.
Prescriptions:
New
cefpodoxime 200 mg tablet
200 mg PO BID 7 Days Qty: 14 0RF
Continued
levothyroxine 25 mcg Tablet
25 mcg PO DAILY
metoprolol tartrate 25 mg Tablet
25 mg PO BID Qty: 0 0RF
acetaminophen [Tylenol] 325 mg Tablet
650 mg PO Q6HPRN PRN (Reason: mild pain)
amlodipine [Norvasc] 5 mg Tablet
5 mg PO DAILY
furosemide 40 mg tablet
20 mg PO DAILY
baclofen 5 mg tablet
5 mg PO BID
hydralazine 25 mg Tablet
25 mg BID
Discharge Orders:
Discharge Patient (As Directed); Ordered 12/22/23
Ordered By: Galilea Ramirez
Discharge Date and Time
Print Language: CITIZEN OF [place]
--- NOTE | 2023-12-22 14:50 | CM ---
equity manager reviewed patient's chart and met with patient and patient lives with family and requires total care, patient is paraplegic. Per physician patient has been discharged today, patient has been set up with [facility]. Patient to leave by
ambulance, with a 6pm picker and packer.
Pharmacy: [facility]
PCP: Dr. Newman
[facility]; [facility]
[2023-12-22 14:55] VITALS: BP 140/79
== END 2023-12-22 18:24 | disposition home health service (06) | DRG 872 ==
LOC: 4 WEST ACU 17:17
PROVIDERS: Physician Assistant; ADMITTING PHYSICIAN Hospitalist; EMERGENCY PHYSICIAN Emergency Medicine; FAMILY PHYSICIAN Physician Assistant Medical; OTHER PHYSICIAN Internal Medicine Cardiovascular Disease; REFERRING PHYSICIAN Internal Medicine Cardiovascular Disease
DX: A41.59 Other Gram-negative sepsis (principal); T83.518A Infection and inflammatory reaction due to other urinary catheter, initial encounter; N30.00 Acute cystitis without hematuria; I13.0 Hypertensive heart and chronic kidney disease with heart failure and stage 1 through stage 4 chronic kidney disease, or unspecified chronic kidney disease; I50.32 Chronic diastolic (congestive) heart failure; N18.4 Chronic kidney disease, stage 4 (severe); N17.9 Acute kidney failure, unspecified; I5A Non-ischemic myocardial injury (non-traumatic); N31.9 Neuromuscular dysfunction of bladder, unspecified; N32.0 Bladder-neck obstruction; K52.89 Other specified noninfective gastroenteritis and colitis; E03.9 Hypothyroidism, unspecified; T83.091A Other mechanical complication of indwelling urethral catheter, initial encounter; S14.103S Unspecified injury at C3 level of cervical spinal cord, sequela; N39.498 Other specified urinary incontinence; E87.5 Hyperkalemia; E83.39 Other disorders of phosphorus metabolism; I45.10 Unspecified right bundle-branch block; Z79.899 Other long term (current) drug therapy; Z79.890 Hormone replacement therapy; Y84.6 Urinary catheterization as the cause of abnormal reaction of the patient, or of later complication, without mention of misadventure at the time of the procedure; Y73.2 Prosthetic and other implants, materials and accessory gastroenterology and urology devices associated with adverse incidents
CPT/HCPCS: 71046; 74176; 80048; 80053; 80076; 81003; 81015; 83605; 83690; 83735; 84132; 84484; 85025; 87077; 87086; 87186; 93005; 93306; 96361; 96374; 99285

== ENCOUNTER 2024-03-02 10:06 | Emergency (ER) | payer MEDICARE, SELFPAY ==
[2024-03-02 10:13] VITALS: BP 105/71
[2024-03-02 10:14] VITALS: BMI 20.6
[2024-03-02 10:37] LABS: % Basophils 0.3 % (0-2); % Eosinophils 0.1 % (0-6); % Immature Granulocytes 0.5 % (0-0.5); % Lymphocytes 5.2 % (20.5-51.1); % Monocytes 9.5 % (1.7-9.3); % Neutrophils 84.4 % (42.2-75.2); Absolute Immature Granulocytes 0.1 10^3/uL (0-0.05); Absolute Lymphocytes 0.7 10^3/uL (1.2-3.4); Absolute Monocytes 1.2 10^3/uL (0.1-0.6); Hematocrit 37.2 % (39.0-52.0); Hemoglobin 12.5 g/dL (13.0-18.0); Mean Corp Hgb Conc. 33.6 g/dL (33.0-37.0); Mean Corpuscular Hgb 29.1 pg (27.0-31.0); Mean Corpuscular Volume 86.7 fL (80.0-94.0); Mean Platelet Volume 10.7 fL (7.4-10.4); Nucleated Red Blood Cells % 0 % (-); Platelet Count 247 10^3/uL (130-400); Red Blood Cell Count 4.29 10^6/uL (4.70-6.10); Red Cell Dist. Width 14.4 % (11.5-14.5)
[2024-03-02 10:49] LABS: ALT (SGPT) 13 U/L (0-50); AST (SGOT) 25 U/L (17-59); Albumin 3.6 g/dl (3.5-5.0); Alkaline Phosphatase 107 U/L (38-126); Blood Urea Nitrogen 46 mg/dl (9-20); Calcium 9.3 mg/dl (8.4-10.2); Carbon Dioxide 23 mmol/L (22-30); Chloride 109 mmol/L (98-107); Estimated Creatinine Clearance 17 ml/min; Glucose 92 mg/dl (70-99); Sodium 142 mmol/L (135-145); Total Bilirubin 0.5 mg/dl (0.2-1.3); Total Protein 7.1 g/dl (6.3-8.2); eGFR 24.56
--- NOTE | 2024-03-02 10:54 | ED.GENMED ---
History of Present Illness
General
Chief Complaint: Catheter/Tube Problem
Source: patient and ambulance crew
Exam Limitations: none
Time Seen by Provider: 03/02/24 10:20
Nursing documentation reviewed up to this point in time: agreed with
History of Present Illness
History of Present Illness:
83-year-old male with past medical history of hypertension, paralysis, Lin catheter in place presenting to the emergency department today with concerns of nondraining Lin catheter this morning. Also has some pain to the lower abdomen. He
claims that it started draining en route here now he is asymptomatic. Denies any current fevers.
Past History
Past History
ED Past Medical History: Other (Urinary incontinence, spinal cord injury)
Social History
Tobacco: Non-smoker
Living: with family
Review of Systems
Review of Systems
Allergies reviewed?: Yes
All Other Systems: ROS reviewed and negative except as documented in HPI and ROS
Phy Exam
Physical Exam
Physical Exam:
GENERAL: Alert , in no apparent distress
EYE: pupils equal and reactive
NECK: Supple, no significant adenopathy.
ENT: o/p clr, mmm.
CARDIAC: Regular rate and rhythm .
LUNGS: Clear breath sounds bilaterally, no acute respiratory distress, no wheezes/rales/rhonchi
ABDOMEN: Soft, without focal tenderness, no r/g, no cvat
NEUROLOGICAL: Alert and oriented, no focal neuro deficits
SKIN: Warm and dry, skin intact.
MUSCULOSKELETAL: No edema, well perfused.
PSYCH: Normal and appropriate interaction.
Course
Orders/Labs/Results
Orders:
Orders
03/02/24 10:25
Complete Blood Count/With Diff Urgent
Comprehensive Metabolic Panel Urgent
Urinalysis Reflex To Culture Urgent
Date Specimen was Collected: 03/02/24
Time Specimen was Collected: 10:23
Urine Microscopic Reflex Cult Urgent
Urine Culture Urgent
SASCHA Source: U
Specimen Description:
Date Specimen was Collected: 03/02/24
Time Specimen was Collected: 10:23
03/02/24 12:07
Cephalexin Monohydrate [Keflex] 500 mg PO NOW STA
03/02/24 12:11
Lin Placement- Treatment ONCE
Reason for insertion: Acute Retention
Abnormal Lab Results
03/02/24
10:25
WBC 13.0 H 10^3/uL
(4.8-10.8)
RBC 4.29 L 10^6/uL
(4.70-6.10)
Hgb 12.5 L g/dL
(13.0-18.0)
Hct 37.2 L %
(39.0-52.0)
MPV 10.7 H fL
(7.4-10.4)
Abs Immat Gran (auto) 0.1 H 10^3/uL
(0-0.05)
Absolute Neuts (auto) 11.0 H 10^3/uL
(1.4-6.5)
Absolute Lymphs (auto) 0.7 L 10^3/uL
(1.2-3.4)
Absolute Monos (auto) 1.2 H 10^3/uL
(0.1-0.6)
Neutrophils % 84.4 H %
(42.2-75.2)
Lymphocytes % 5.2 L %
(20.5-51.1)
Monocytes % 9.5 H %
(1.7-9.3)
Chloride 109 H mmol/L
(98-107)
BUN 46 H mg/dl
(9-20)
Creatinine 2.5 H mg/dL
(0.7-1.3)
Ur Occult Blood Reflex 3+ A
(Negative)
Urine Nitrite (Reflex) Positive A
(Negative)
Leukocyte Esterase Rfl 2+ A
(Negative)
Urine Albumin (Reflex) 3+ A
(Neg - Trace)
03/02/24 10:25
03/02/24 10:25
Vital Signs
Initial and Last Documented VS:
Initial Vital Signs
BP
105/71
03/02/24 10:13
Last Documented Vital Signs
BP Pulse Ox
161/104 95
03/02/24 12:00 03/02/24 11:54
MDM/Problems Addressed
MDM/Problems Addressed:
83-year-old male presenting to the emergency department with concerns of his Lin bag not draining well. Has had Lin in place for 2 weeks. Claims he may have had a fever and some nausea not feeling better now that it drained this morning.
Urinalysis obtained that shows likely urinary tract infection. His Lin was replaced concerning potential contamination to the catheter itself. Otherwise he does have some inflammation to the tip of the penis he was started on Keflex and also be
written for mupirocin to the affected area. Otherwise stable for discharge return precautions given.
*Critical Care Note
Total Time (30-74mins, 75-104mins- exclusive of procedures): Not Applicable
ED Attending Note
-
Portions of this chart may have been created with voice recognition software.� Occasional wrong word or��sound alike� substitutions may have occurred due to the inherent limitations of voice recognition software.
Discharge Plan
Departure
Patient Disposition: Home (Routine Discharge)
Date of Disposition: 03/02/24
Time of Disposition: 12:14
Patient with high blood pressure during this ER visit?: Yes
Condition: Good
Covid-19: Not Applicable
Discharge Problem:
Acute UTI, Balanitis
Instructions: How to Care for Your Lin Catheter, Male, BLOOD PRESSURE
Prescriptions:
New
cephalexin 500 mg capsule
500 mg PO TID 7 Days Qty: 21 0RF
mupirocin 2 % ointment
1 applic topical BID Qty: 22 0RF
No Action
levothyroxine 25 mcg Tablet
25 mcg PO DAILY
metoprolol tartrate 25 mg Tablet
25 mg PO BID Qty: 0 0RF
acetaminophen [Tylenol] 325 mg Tablet
650 mg PO Q6HPRN PRN (Reason: mild pain)
amlodipine [Norvasc] 5 mg Tablet
5 mg PO DAILY
furosemide 40 mg tablet
20 mg PO DAILY
baclofen 5 mg tablet
5 mg PO BID
hydralazine 25 mg Tablet
25 mg BID
cefpodoxime 200 mg tablet
200 mg PO BID 7 Days Qty: 14 0RF
Referrals:
Jonel Peguero PA-C [Family Provider] -
Activity Restrictions/Additional Instructions:
You came to the emergency department today with concerns of a nondraining Lin catheter. You are found to have a potential urinary tract infection. Please take Keflex 3 times daily for the neck 7 days and also use mupirocin to the head of the
penis and follow-up closely with urology for reassessment. Return to the emergency department any worsening, new or concerning symptoms.
Interventions
Interventions:
*Risk Screen - Suicide Last Done: 03/02/24 10:14
*General Assessment Last Done: 03/02/24 10:14
*Neglect/Abuse Screening Last Done: 03/02/24 10:14
ED- Fall Risk Assessment Last Done: 03/02/24 10:14
*ED COVID-19 Vaccine History Last Done: 03/02/24 10:14
BL-Dotqap-Cbctbckbbo Assessment Last Done: 03/02/24 10:14
ED-Male Genitourinary Assessment Last Done: 03/02/24 10:14
Discharge Date and Time
Print Language: ITALIAN
[2024-03-02 11:00] VITALS: BP 132/80
[2024-03-02 12:00] VITALS: BP 161/104
[2024-03-02 12:01] LABS: Urine Albumin 3+ (Neg - Trace); Urine Bilirubin Negative (Negative); Urine Character Mucous (Clear); Urine Color Yellow; Urine Glucose Negative (Negative); Urine Ketone Negative (Negative); Urine Leukocyte 2+ (Negative); Urine Nitrite Positive (Negative); Urine Occult Blood 3+ (Negative); Urine Urobilinogen Negative (Neg - 1+)
[2024-03-02] MEDS: KEFLEX 500 MG PO (12:11)
[2024-03-02 12:17] LABS: Urine Bacteria Many (Negative); Urine Red Blood Cell 26-30 /HPF (0-2); Urine White Cell >100 /HPF (0-5)
[2024-03-02 14:00] VITALS: BP 164/95
== END 2024-03-02 17:13 | disposition home or self-care (01) ==
LOC: EMR 10:06
PROVIDERS: Physician Assistant; EMERGENCY PHYSICIAN Emergency Medicine; FAMILY PHYSICIAN Physician Assistant Medical
DX: N39.0 Urinary tract infection, site not specified (principal); N48.1 Balanitis; I10 Essential (primary) hypertension
CPT/HCPCS: 99283; 51798; 51702; 80053; 81003; 81015; 85025; 87086

== ENCOUNTER 2024-04-23 12:25 | Emergency (ER) | payer MEDICARE, SELFPAY ==
[2024-04-23 12:48] VITALS: BP 141/71; BMI 20.8
[2024-04-23 13:13] LABS: Urine Albumin 1+ (Neg - Trace); Urine Bilirubin Negative (Negative); Urine Character Slightly Cloudy (Clear); Urine Color Yellow; Urine Glucose Negative (Negative); Urine Ketone Negative (Negative); Urine Leukocyte 2+ (Negative); Urine Nitrite Positive (Negative); Urine Occult Blood 2+ (Negative); Urine Urobilinogen Negative (Neg - 1+)
[2024-04-23 13:31] LABS: Urine Amorphous Seen; Urine Squamous Cell 0-2 /LPF (Few)
[2024-04-23 13:33] LABS: Urine Bacteria Many (Negative); Urine Uric Acid Crystals Seen; Urine White Cell 30-40 /HPF (0-5)
--- NOTE | 2024-04-23 13:45 | ED.GENMED ---
History of Present Illness
General
Chief Complaint: Catheter/Tube Problem
Time Seen by Provider: 04/23/24 13:38
History of Present Illness
History of Present Illness:
84-year-old male with history of spinal cord injury and chronic indwelling Lin presents to the emergency department for evaluation of a clogged Lin catheter. Catheter was exchanged on arrival with good return of urine. He reports no symptoms
at this time
Past History
Past History
ED Past Medical History: Other (Urinary incontinence, spinal cord injury)
Social History
Tobacco: Non-smoker
Living: with family
Review of Systems
Review of Systems
Allergies reviewed?: Yes
All Other Systems: ROS reviewed and negative except as documented in HPI and ROS
Phy Exam
Physical Exam
Physical Exam:
GEN: Well appearing, NAD, WDWN
HEENT: Oral mucosa moist, no scleral icterus
Cardiac: Regular rate
Lung: No respiratory distress, no tachypnea
Abdomen: Soft, mild suprapubic tenderness with no rigidity or distention
: Lin catheter in place, yellow/cloudy urine in the leg bag
MSK: No gross deformity or injuries
Skin: Good color, no pallor or jaundice, no rashes
Neuro: AO x3, moves all extremities freely
Psych: Calm, cooperative
Course
Orders/Labs/Results
Orders:
Orders
04/23/24 12:53
Lin Placement- Treatment ONCE
Reason for insertion: Acute Retention
Catheter- Indwelling As Directed
Reason for insertion: Acute Retention
Discontinue Date/Time: 04/26/24 0600
04/23/24 13:06
Urinalysis Reflex To Culture Urgent
Date Specimen was Collected: 04/23/24
Time Specimen was Collected: 13:01
Urine Microscopic Reflex Cult Urgent
Urine Culture Urgent
SASCHA Source: U
Specimen Description:
Date Specimen was Collected: 12/15/24
Time Specimen was Collected: 13:01
04/23/24 13:45
Cefdinir [Omnicef] 300 mg PO NOW STA
Abnormal Lab Results
04/23/24
13:06
Ur Occult Blood Reflex 2+ A
(Negative)
Urine Nitrite (Reflex) Positive A
(Negative)
Leukocyte Esterase Rfl 2+ A
(Negative)
Urine RBC 11-15 A /HPF
(0-2)
Urine WBC (Reflex) 30-40 A /HPF
(0-5)
Urine Bacteria (Reflex) Many A
(Negative)
Urine Albumin (Reflex) 1+ A
(Neg - Trace)
Vital Signs
Initial and Last Documented VS:
Initial Vital Signs
Temp Pulse Resp BP Pulse Ox
99.1 F 78 20 141/71 96
04/23/24 12:48 04/23/24 12:48 04/23/24 12:48 04/23/24 12:48 04/23/24 12:48
Last Documented Vital Signs
Temp Pulse Resp BP Pulse Ox
99.1 F 78 20 141/71 96
04/23/24 12:48 04/23/24 12:48 04/23/24 12:48 04/23/24 12:48 04/23/24 12:48
MDM/Problems Addressed
MDM/Problems Addressed:
Catheter exchanged will treat with empiric antibiotics
*Critical Care Note
Total Time (30-74mins, 75-104mins- exclusive of procedures): Not Applicable
ED Attending Note
-
Portions of this chart may have been created with voice recognition software.� Occasional wrong word or��sound alike� substitutions may have occurred due to the inherent limitations of voice recognition software.
Discharge Plan
Departure
Patient Disposition: Home (Routine Discharge)
Date of Disposition: 04/23/24
Time of Disposition: 13:45
Patient with high blood pressure during this ER visit?: No
Discharge Problem:
Obstructed Lin catheter
Instructions: How to Care for Your Lin Catheter, Male
Prescriptions:
New
cefdinir 300 mg capsule
300 mg PO BID Qty: 10 0RF
No Action
levothyroxine 25 mcg Tablet
25 mcg PO DAILY
metoprolol tartrate 25 mg Tablet
25 mg PO BID Qty: 0 0RF
acetaminophen [Tylenol] 325 mg Tablet
650 mg PO Q6HPRN PRN (Reason: mild pain)
amlodipine [Norvasc] 5 mg Tablet
5 mg PO DAILY
furosemide 40 mg tablet
20 mg PO DAILY
baclofen 5 mg tablet
5 mg PO BID
hydralazine 25 mg Tablet
25 mg BID
cefpodoxime 200 mg tablet
200 mg PO BID 7 Days Qty: 14 0RF
cephalexin 500 mg capsule
500 mg PO TID 7 Days Qty: 21 0RF
mupirocin 2 % ointment
1 applic topical BID Qty: 22 0RF
Referrals:
Guevara Giraldo MD [Family Provider] -
Interventions
Interventions:
*Risk Screen - Suicide Last Done: 04/23/24 12:48
*General Assessment Last Done: 04/23/24 12:48
*Neglect/Abuse Screening Last Done: 04/23/24 12:48
ED- Fall Risk Assessment Last Done: 04/23/24 12:48
*ED COVID-19 Vaccine History Last Done: 04/23/24 12:48
UU-Glsrvt-Duxkkvqhgt Assessment Last Done: 04/23/24 12:48
ED-Male Genitourinary Assessment Last Done: 04/23/24 12:48
Discharge Date and Time
Print Language: NIGERIAN
[2024-04-23] MEDS: OMNICEF 300 MG PO (16:42)
[2024-04-23 17:26] VITALS: BP 131/76
== END 2024-04-23 17:28 | disposition home or self-care (01) ==
LOC: EMR 12:25
PROVIDERS: EMERGENCY PHYSICIAN Emergency Medicine; FAMILY PHYSICIAN Internal Medicine
DX: T83.091A Other mechanical complication of indwelling urethral catheter, initial encounter (principal); Y84.6 Urinary catheterization as the cause of abnormal reaction of the patient, or of later complication, without mention of misadventure at the time of the procedure; Z87.828 Personal history of other (healed) physical injury and trauma
CPT/HCPCS: 99284; 51702; 51798; 81003; 81015; 87077; 87086; 87088; 87186